=== PATIENT | female | born 1950 | race Caucasian/White ===

== ENCOUNTER 2020-01-14 11:12 | Emergency (ER) | payer MEDICARE, OTHER, SELFPAY ==
--- NOTE | ~2020-01-14 | XR_ITS ---
EXAMINATION: XR foot LT min 3V DATE: 01/14/2020 11:46 INDICATION: Left foot pain. TECHNIQUE: 4 views of left foot were obtained. COMPARISON: None. FINDINGS: Bone alignment is normal. There is a nondisplaced extra-articular transverse fracture of ba se of third metatarsal. There is mild osteoarthritis of first metatarsophalangeal joint and some of t he interphalangeal joints. There are enthesophytes at the posterior and plantar aspects of calcaneal tuberosity. IMPRESSION: 1. Nondisplaced extra-articular transverse fracture of base of third metatarsal. Reviewed, dictated and finalized at location A. IMPRESSION: 1. Nondisplaced extra-articular transverse fracture of base of third metatarsal .
[2020-01-14 11:36] VITALS: BP 137/83; PULSE 56; RESP 16; TEMP 36.7; O2SAT 99
--- NOTE | 2020-01-14 11:39 | PC.NURSE ---
11:40-Pt in x-ray
--- NOTE | 2020-01-14 12:16 | ED.GENADULT ---
HPI - General Adult General Chief complaint: Extremity Injury, Lower Stated complaint: fall Time Seen by Provider: 01/14/20 12:16 Source: patient and RN notes reviewed Limitations: no limitations History of Present Illness HPI narrative: 69-year-old female presents with complaints of left foot pain and swelling for the past 2.5 weeks. Sandra says she tripped and fell over a threshold going into home from garage causing injury. Soaked foot in [place] salt and applied alec wrap with some relief. Hurts to bear weight. No radiation of pain. No numbness, tingling, or loss of mobility. Exacerbating factor applying weight. Denies inability to bear weight. Denies discoloration. Denies suspect foreign body. Denies fever or chills. The patient reports she have not been diagnosed with COVID-19. The patient reports she is not waiting for the results of a COVID-19 lab test. The patient reports she do not have fever, chills, weakness, fatigue, or myalgia. The patient reports she do not have a new or worsening cough or shortness of breath. Denies chest pain. The patient reports she do not have any rhinorrhea, congestion, sore throat, nausea, vomiting, abdominal pain, and diarrhea. Tolerating po intake well. Denies recent traveling. Denies concerns for COVID-19 or exposures been home since [id number] order except for essential household needs and return home. At this time, patient is not suspected of having COVID-19. Some parts of this dictation were generated by voice recognition software and may contain typographical and/or grammatical inaccuracies. Related Data Home Medications Medication Instructions Recorded Confirmed atorvastatin 10 mg PO DAILY 01/14/20 01/14/20 losartan 25 mg PO TID 01/14/20 01/14/20 metformin 1,000 mg PO BID 01/14/20 01/14/20 pantoprazole [Protonix] 40 mg PO DAILY 01/14/20 01/14/20 potassium chloride 1 meq PO DAILY 01/14/20 01/14/20 rivaroxaban [Xarelto] 20 mg PO DAILY 01/14/20 01/14/20 torsemide 20 mg PO TID 01/14/20 01/14/20 venlafaxine [Effexor XR] 75 mg PO DAILY 01/14/20 01/14/20 Allergies Allergy/AdvReac Type Severity Reaction Status Date / Time No Known Allergies Allergy Verified 01/14/20 12:00 Review of Systems Review of Systems: Narrative: CONSTITUTIONAL: Denies fever, chills, sweats. EYES: Denies visual changes, redness, discharge. ENT: Denies rhinorrhea, congestion, sore throat, otalgia. CARDIOVASCULAR: Denies chest pain, palpitations, edema. RESPIRATORY: Denies dyspnea, wheezing, cough. GASTROINTESTINAL: Denies abdominal pain, nausea, vomiting, diarrhea. GENITOURINARY: Denies dysuria, hematuria, abnormal discharge. SKIN: Denies rash or itching. MUSCULOSKELETAL: Denies acute back pain or myalgia. Complains of pain and swelling to left foot. NEUROLOGIC: Denies numbness or focal weakness. PSYCHIATRIC: Denies anxiety or depression. All other systems reviewed & are unremarkable except as noted in HPI and below. [facility] Past Medical History Medical History (Updated 01/15/20 @ 00:01 by Yara Samuel) Hypercholesteremia Hypertension Surgical History Surgical History (Updated 01/14/20 @ 12:38 by ROSSI Anaya) History of cardiac radiofrequency ablation (RFA) 01/14/19 History of hysterectomy 1990 Family History Family History (Updated 01/14/20 @ 12:38 by ROSSI Anaya) Father , Related to CHF No problems noted. Mother Alive and well Social History Social History (Updated 01/14/20 @ 12:39 by ROSSI Anaya) Smoking status: Former smoker Tobacco type: cigarettes Second hand tobacco smoke exposure: No Smoking end date: 08/12/93 Alcohol intake: current Substance use: never Living arrangements: with family Occupation/Education: retired Gender identity (if verbalized by the patient): Female Comments At time of signature, agree with nurse past medical, surgical, social, and family history. There is no relevan
== END 2020-01-14 12:35 | disposition home or self-care (01) ==
PROVIDERS: Emergency Provider Nurse Practitioner Family
DX: S92.335A Nondisplaced fracture of third metatarsal bone, left foot, initial encounter for closed fracture (principal); E78.00 Pure hypercholesterolemia, unspecified; I10 Essential (primary) hypertension; Z87.891 Personal history of nicotine dependence; X58.XXXA Exposure to other specified factors, initial encounter
CPT/HCPCS: 73630; 99204; G0463